=== PATIENT | male | born 1940 | race Caucasian/White ===

== ENCOUNTER 2020-09-20 13:31 | Emergency (ER) | payer MEDICARE, OTHER ==
[2020-09-20 13:56] VITALS: BP 215/82; PULSE 65
[2020-09-20] MEDS ORDERED: Sodium Chloride 0.9% 10 ML Syringe FLUSH PRN (14:09)
--- NOTE | 2020-09-20 14:16 | EDM.PDOC ---
ED HPI GENERAL MEDICAL PROBLEM - General Chief Complaint: Abdominal Pain Stated Complaint: LOW ABDOMINAL PAIN Time Seen by Provider: 09/20/20 13:47 Source of Information: Reports: Patient, RN Notes Reviewed History Limitations: Reports: No Limitations - History of Present Illness INITIAL COMMENTS - FREE TEXT/NARRATIVE: Patient is an 80-year-old male who presents to the ED for evaluation of his left lower quadrant pain. Patient notes this is been present for the last 3 weeks or so, he states the pain is constant in nature he describes it as if you were to be holding onto his finger, and you get some of that pinching/pressure type pain. He normally attends the [facility], and he called today for an appointment but was told to come to the ER to have it evaluated. He has not had any fevers or chills, cough/shortness of breath, no nausea or vomiting or diarrhea but he states he is having more soft stools than normal. But he is only been having 1 stool daily. He states that he has felt pain like this before possibly once when he had a colonoscopy done, where they perforated his colon. He states nothing really makes it worse or better. His blood pressure was found to be markedly elevated at 215/82, and has steadily stayed in the 200s systolically while being in the ER so far. Left Lower Abdomen Pain Score (Numeric/FACES): 3 - Related Data Allergies Allergy/AdvReac Type Severity Reaction Status Date / Time No Known Allergies Allergy Verified 09/20/20 13:39 Home Meds: Home Meds Insulin Aspart [NovoLOG] 15 units SQ TID 05/31/14 [History] Insulin Glarg,Human.Rec.Analog [Lantus] 40 unit SQ BEDTIME 05/31/14 [History] Acetaminophen 1,000 mg PO ASDIRECTED PRN 09/20/20 [History] Cholecalciferol (Vitamin D3) [Vitamin D3] 1 tab PO DAILY 09/20/20 [History] Clopidogrel Bisulfate [Plavix] 75 mg PO DAILY 09/20/20 [History] Famotidine 20 mg PO BID 09/20/20 [History] Hydrochlorothiazide/Lisinopril [Lisinopril-HCTZ 20-12.5 MG] 1 tab PO DAILY 09/20/20 [History] Ipratropium [place] 30 ml NS BID 09/20/20 [History] Isosorbide Mononitrate [Imdur] 60 mg PO DAILY 09/20/20 [History] Metoprolol Succinate 200 mg PO DAILY 09/20/20 [History] Tamsulosin HCl 0.4 mg PO DAILY 09/20/20 [History] Vit C/E/Zn/Coppr/Lutein/Zeaxan [Preservision [place] 2 Softgel] 1 tab PO DAILY 06/30 [History] Past Medical History HEENT History: Reports: Cataract, Impaired Vision Cardiovascular History: Reports: Hypertension, Stents (x4) Respiratory History: Reports: Other (See Below) (takes ipratropium) Gastrointestinal History: Reports: Cholelithiasis Genitourinary History: Reports: BPH Other Genitourinary History: frequent urination at night Endocrine/Metabolic History: Reports: Diabetes, Type II - Past Surgical History HEENT Surgical History: Reports: Cataract Surgery GI Surgical History: Reports: Cholecystectomy, Colonoscopy Other GI Surgeries/Procedures: perforated bowel with colonoscopy, had resection Social & Family History - Family History Family Medical History: No Pertinent Family History Cardiac: Reports: CAD Endocrine/Metabolic: Reports: Diabetes, type II Oncologic: Reports: Liver - Tobacco Use Tobacco Use Status *Q: Never Tobacco User - Caffeine Use Caffeine Use: Reports: Coffee - Recreational Drug Use Recreational Drug Use: No ED ROS GENERAL - Review of Systems Review Of Systems: Comprehensive ROS is negative, except as noted in HPI. ED EXAM, GI/ABD - Physical Exam Exam: See Below Exam Limited By: No Limitations General Appearance: Alert, WD/WN, No Apparent Distress Respiratory/Chest: No Respiratory Distress, Lungs Clear, Normal Breath Sounds, No Accessory Muscle Use, Chest Non-Tender Cardiovascular: Normal Peripheral Pulses, Regular Rate, Rhythm, No Edema, No Murmur GI/Abdominal Exam: Normal Bowel Sounds, Soft, No Distention, No Mass, Tender (LLQ mainly). No: Rebound Extremities: Normal Inspection, Normal Capillary Refill Neurological: Alert, Oriented, Normal Cognition, No Motor/Sensory Deficits Psychiatric: Normal Affect, Normal Mood Skin Exam: Warm, Dry, Intact, Normal Color, No Rash #1 Interpretation EKG Date: 09/20/20 Time: 15:05 Rhythm: NSR Rate (Beats/Min): 60 Junction: Normal P-Wave: Present QRS: Normal ST-T: Normal QT: Normal EKG Interpretation Comments: No obvious ischemia or acute ST changes noted, reviewed by myself and Dr. Zuniga. Course - Vital Signs Last Recorded V/S: Last Vital Signs Temp 97.3 F 09/20/20 13:54 Pulse 65 09/20/20 13:54 Resp 18 09/20/20 13:54 BP 215/82 H 09/20/20 13:54 Pulse Ox 99 09/20/20 13:54 - Orders/Labs/Meds Orders: Active Orders 24 hr Category Date Time Status EKG Documentation Completion [RC] STAT Care 09/20/20 14:10 Ordered Peripheral IV Care [RC] . DIRECTED Care 09/20/20 14:10 Ordered UA W/MICROSCOPIC [URIN] Stat Lab 09/20/20 14:09 Ordered Sodium Chloride 0.9% [Saline Flush] Med 09/20/20 14:09 Ordered 10 ml FLUSH ASDIRECTED PRN Peripheral IV Insertion Adult [OM.PC] Routine Oth 09/20/20 14:09 Ordered Medication Orders Sodium Chloride (Saline Flush) 10 ml FLUSH ASDIRECTED PRN PRN Reason: Keep Vein Open Last Admin: 09/20/20 14:48 Dose: 10 ml Documented by: MASTER Labs: Laboratory Tests 09/20/20 09/20/20 09/20/20 Range/Units 13:45 13:45 13:45 WBC 8.06 (4.23-9.07) K/mm3 RBC 4.81 (4.63-6.08) M/mm3 Hgb 15.3 (13.7-17.5) gm/dl Hct 44.6 (40.1-51.0) % MCV 92.7 H (79.0-92.2) fl MCH 31.8 (25.7-32.2) pg MCHC 34.3 (32.2-35.5) g/dl RDW Std Deviation 45.2 H (35.1-43.9) fL Plt Count 185 (163-337) K/mm3 MPV 11.3 (9.4-12.3) fl Neutrophils % (Manual) 72 H (40-60) % Band Neutrophils % 0 (0-10) % Lymphocytes % (Manual) 21 (20-40) % Atypical Lymphs % 0 % Monocytes % (Manual) 3 (2-10) % Eosinophils % (Manual) 4 (0.8-7.0) % Basophils % (Manual) 0 L (0.2-1.2) Platelet Estimate Adequate RBC Morph Comment Normal PT 11.6 (9.7-12.0) SECONDS INR 1.09 APTT 25.7 (21.7-31.4) SECONDS Sodium 142 (136-145) mEq/L Potassium 3.9 (3.5-5.1) mEq/L Chloride 102 (98-107) mEq/L Carbon Dioxide 30 (21-32) mEq/L Anion Gap 13.9 (5-15) BUN 15 (7-18) mg/dL Creatinine 1.3 (0.7-1.3) mg/dL Est Cr Clr Drug Dosing 46.66 mL/min Estimated GFR (MDRD) 53 (>60) mL/min BUN/Creatinine Ratio 11.5 L (14-18) Glucose 198 H (83-115) mg/dL Calcium 9.2 (8.5-10.1) mg/dL Magnesium 2.2 (1.8-2.4) mg/dl Total Bilirubin 1.0 (0.2-1.0) mg/dL AST 10 L (15-37) U/L ALT 15 L (16-63) U/L Alkaline Phosphatase 72 (46-116) U/L Troponin I < 0.017 (0.00-0.056) ng/mL Total Protein 7.8 (6.4-8.2) g/dl Albumin 3.8 (3.4-5.0) g/dl Globulin 4.0 gm/dL Albumin/Globulin Ratio 1.0 (1-2) Urine Color (Yellow) Urine Appearance (Clear) Urine pH (5.0-8.0) Ur Specific [place] (1.005-1.030) Urine Protein (Negative) Urine Glucose (UA) (Negative) Urine Ketones (Negative) Urine Occult Blood (Negative) Urine Nitrite (Negative) Urine Bilirubin (Negative) Urine Urobilinogen (0.2-1.0) Ur Leukocyte Esterase (Negative) 09/20/20 Range/Units 14:37 WBC (4.23-9.07) K/mm3 RBC (4.63-6.08) M/mm3 Hgb (13.7-17.5) gm/dl Hct (40.1-51.0) % MCV (79.0-92.2) fl MCH (25.7-32.2) pg MCHC (32.2-35.5) g/dl RDW Std Deviation (35.1-43.9) fL Plt Count (163-337) K/mm3 MPV (9.4-12.3) fl Neutrophils % (Manual) (40-60) % Band Neutrophils % (0-10) % Lymphocytes % (Manual) (20-40) % Atypical Lymphs % % Monocytes % (Manual) (2-10) % Eosinophils % (Manual) (0.8-7.0) % Basophils % (Manual) (0.2-1.2) Platelet Estimate RBC Morph Comment PT (9.7-12.0) SECONDS INR APTT (21.7-31.4) SECONDS Sodium (136-145) mEq/L Potassium (3.5-5.1) mEq/L Chloride (98-107) mEq/L Carbon Dioxide (21-32) mEq/L Anion Gap (5-15) BUN (7-18) mg/dL Creatinine (0.7-1.3) mg/dL Est Cr Clr Drug Dosing mL/min Estimated GFR (MDRD) (>60) mL/min BUN/Creatinine Ratio (14-18) Glucose (83-115) mg/dL Calcium (8.5-10.1) mg/dL Magnesium (1.8-2.4) mg/dl Total Bilirubin (0.2-1.0) mg/dL AST (15-37) U/L ALT (16-63) U/L Alkaline Phosphatase (46-116) U/L Troponin I (0.00-0.056) ng/mL Total Protein (6.4-8.2) g/dl Albumin (3.4-5.0) g/dl Globulin gm/dL Albumin/Globulin Ratio (1-2) Urine Color Yellow (Yellow) Urine Appearance Clear (Clear) Urine pH 5.5 (5.0-8.0) Ur Specific [place] 1.020 (1.005-1.030) Urine Protein Negative (Negative) Urine Glucose (UA) 2+ H (Negative) Urine Ketones Negative (Negative) Urine Occult Blood Negative (Negative) Urine Nitrite Negative (Negative) Urine Bilirubin Negative (Negative) Urine Urobilinogen 0.2 (0.2-1.0) Ur Leukocyte Esterase Negative (Negative) Meds: Medications Generic Name Dose Route Start Last Admin Trade Name Ivory PRN Reason Stop Dose Admin Sodium Chloride 10 ml 09/20/20 14:09 09/20/20 14:48 Saline Flush FLUSH 10 ml ASDIRECTED PRN Administration Keep Vein Open Discontinued Medications Generic Name Dose Route Start Last Admin Trade Name Ivory PRN Reason Stop Dose Admin Magnesium Citrate 296 ml 09/20/20 15:15 Citrate Of Magnesia PO 09/20/20 15:16 ONETIME ONE - Re-Assessments/Exams Free Text/Narrative Re-Assessment/Exam: 09/20/20 14:17 Patient presents to the ED for evaluation of his left lower quadrant abdominal pain. We will go ahead and get an abdomen/pelvis CT without oral or IV contrast due to his history of diabetes and suspected kidney dysfunction. Will get some basic labs, and EKG due to his sustained elevated blood pressures in the ER. 09/20/20 14:58 The patient's laboratory evaluation is essentially unremarkable, his blood glucose is 198 troponin is undetectably low, CT has been performed however official radiology read is pending, Dr. Zuniga and I both appreciate some increased stool burden throughout the colon and some suspect bladder wall thickening otherwise no obvious acute change. Still awaiting urinalysis results as well. The patient's blood pressure has come down to about a 175/73 just by observation. [facility]. 09/20/20 15:26 CT official read does show quite a bit of stool within the rectal vault, and stool throughout the colon, compatible with Dr. Zuniga and I read the CT. We will go ahead and get the patient discharged home with magnesium citrate for bowel cleanse and see if this does not help some. Departure - Departure Time of Disposition: 15:26 Disposition: Home, Self-Care 01 Condition: Good Clinical Impression: LLQ pain - Discharge Information *PRESCRIPTION DRUG MONITORING PROGRAM REVIEWED*: No *COPY OF PRESCRIPTION DRUG MONITORING REPORT IN PATIENT ADRYAN: No Instructions: Constipation, Adult, [id number] Referrals: Stella Philippe MD [Primary Care Provider] - Forms: ED Department Discharge Additional Instructions: You were evaluated in the ER today for your left lower quadrant abdominal pain. A thorough work-up was done at today's visit, and is only impressive for some stool in your colon, suggestive of constipation at this time. You were given a bottle of magnesium citrate for management of this, you will need to drink one half bottle, if you do not have a rather large bowel movement in a few hours, please repeat with the last half bottle. Please note you might have some abdomen cramping while taking this medication, along with some looser stools towards the end of the bowel movements. Your blood pressure was a little elevated when he first got here in the 200s systolically, but did come down to 153 systolically which is good, due to you being a diabetic, you might want to talk with your primary care provider about the possibility of getting switched to a medication like amlodipine, as this medication can be kidney protective in patients with diabetes and high blood pressure. Please return to the ER at any time if symptoms change or worsen. Sepsis Event Note (ED) - Evaluation Sepsis Screening Result: No Definite Risk - Focused Exam Vital Signs: Vital Signs Temp Pulse Resp BP Pulse Ox 09/20/20 13:54 97.3 F 65 18 215/82 H 99 - My Orders Last 24 Hours: My Active Orders 09/20/20 14:09 UA W/MICROSCOPIC [URIN] Stat Sodium Chloride 0.9% [Saline Flush] 10 ml FLUSH ASDIRECTED PRN Peripheral IV Insertion Adult [OM.PC] Routine 09/20/20 14:10 EKG Documentation Completion [RC] STAT Peripheral IV Care [RC] . DIRECTED - Assessment/Plan Last 24 Hours: My Active Orders 09/20/20 14:09 UA W/MICROSCOPIC [URIN] Stat Sodium Chloride 0.9% [Saline Flush] 10 ml FLUSH ASDIRECTED PRN Peripheral IV Insertion Adult [OM.PC] Routine 09/20/20 14:10 EKG Documentation Completion [RC] STAT Peripheral IV Care [RC] . DIRECTED
--- NOTE | 2020-09-20 15:06 | CT ---
CT abdomen and pelvis Technique: Multiple axial sections were obtained from above the dome of the diaphragm inferiorly through the pubic symphysis. Intravenous and oral contrast was not utilized. Study has been performed as a ureteral stone protocol. Reconstructed coronal and sagittal images were obtained. Findings: Kidneys show no abnormal calcifications. No ureteral dilatation or ureteral stone is seen. No abnormal calcifications are noted within the bladder. Bladder wall is slightly thickened which is most likely due to the patient's age. Visualized lung bases show slight atelectasis/scarring. Noncontrast appearance of the liver contains no focal abnormality. Surgical clips are noted from prior cholecystectomy. Spleen size is within normal limits. Adrenal glands show no nodule. Pancreas is within normal limits. Abdominal aorta shows diffuse atherosclerotic calcification which continues into the iliac vessels. No aneurysm is seen within the abdominal aorta. No retroperitoneal adenopathy or mesenteric abnormalities are seen. Appendix is seen which is normal in size. No pelvic mass or adenopathy is noted. Slight increased stool is noted within the rectum. No inflammatory change or free fluid is appreciated. Bone window settings were reviewed which appear within normal limits for the patient's age. Impression: 1. No renal calculi, ureteral dilatation or ureteral stone is seen. 2. Slight increased stool within the rectum. 3. Other incidental findings as noted above. Nothing acute is appreciated on noncontrast CT study of the abdomen and pelvis. Diagnostic code #2
[2020-09-20] MEDS ORDERED: Magnesium Citrate Solution 296 ML Bottle PO ONE (15:15)
== END 2020-09-20 15:35 | disposition home or self-care (01) ==
LOC: JD.ED 13:31
DX: R10.32 Left lower quadrant pain (principal); I10 Essential (primary) hypertension; N40.0 Benign prostatic hyperplasia without lower urinary tract symptoms; E11.9 Type 2 diabetes mellitus without complications; Z79.899 Other long term (current) drug therapy; Z79.02 Long term (current) use of antithrombotics/antiplatelets; Z79.4 Long term (current) use of insulin
CPT/HCPCS: 36415; 74176; 80053; 81001; 83735; 84484; 85007; 85027; 85610; 85730; 93005; 99284; A9270; 93010

== ENCOUNTER 2025-07-03 11:23 | Emergency (ER) | payer OTHER ==
[2025-07-03] MEDS: Acetaminophen/oxyCODONE 325-5 MG Tab PO ONE (12:29)
[2025-07-03 17:05] VITALS: BP 148/89; PULSE 71
== END 2025-07-03 16:30 | disposition home or self-care (01) ==
LOC: JD.ED 11:23
DX: M25.552 Pain in left hip (principal); I10 Essential (primary) hypertension; E11.9 Type 2 diabetes mellitus without complications; Z79.4 Long term (current) use of insulin; Z79.899 Other long term (current) drug therapy; Z90.49 Acquired absence of other specified parts of digestive tract
CPT/HCPCS: 73502; 73700; 99284; A9270

== ENCOUNTER 2025-07-05 11:49 | Emergency (ER) | payer OTHER ==
[2025-07-05] MEDS ORDERED: Naloxone 0.4 MG/ML SDV IVPUSH PRN ×2 (12:30→15:32)
[2025-07-05 15:39] VITALS: BP 184/66; PULSE 78
== END 2025-07-05 15:47 | disposition home or self-care (01) ==
LOC: JD.ED 11:49
DX: S73.192A Other sprain of left hip, initial encounter (principal); M76.02 Gluteal tendinitis, left hip; E11.9 Type 2 diabetes mellitus without complications; I10 Essential (primary) hypertension; Z95.5 Presence of coronary angioplasty implant and graft; Z90.49 Acquired absence of other specified parts of digestive tract; Z79.4 Long term (current) use of insulin; Z79.899 Other long term (current) drug therapy; Z79.02 Long term (current) use of antithrombotics/antiplatelets; X58.XXXA Exposure to other specified factors, initial encounter; Y93.89 Activity, other specified
CPT/HCPCS: 73721; 96372; 96374; 99284; J1171